=== PATIENT | female | born 1950 | race Caucasian/White ===

== ENCOUNTER 2019-08-25 16:04 | Observation (INO) ==
[2019-08-25] MEDS ORDERED: DEXTROSE 10% 250 ML BAG IV PRN (17:39)
[2019-08-25] MEDS ORDERED: GLUCAGON 1 MG VIAL IM PRN ×2 (17:39)
[2019-08-25] MEDS ORDERED: DEXTROSE 50% 25 GM/50 ML VIAL IV PRN (17:39)
[2019-08-25] MEDS ORDERED: ACETAMINOPHEN 325 MG TABLET PO PRN (18:53)
[2019-08-25] MEDS ORDERED: ONDANSETRON 4 MG/2 ML VIAL IV PRN (18:53)
[2019-08-25] MEDS: INSULIN LISPRO 100 UNIT/ML SUBCUT SCH (21:16)
[2019-08-25] MEDS ORDERED: KETOROLAC 10 MG TABLET PO PRN (21:33)
[2019-08-25] MEDS ORDERED: Loteprednol Etabonate [Lotemax] BOTH EYES SCH (21:45)
[2019-08-25 22:37] LABS: Troponin I < 0.015 NG/ML (0.00-0.045)
[2019-08-25] MEDS: cycloSPORINE OPH EMUL 1 VIAL BOTH EYES SCH (22:50)
[2019-08-25] MEDS: FLUTICASONE 50 MCG NASAL SPRAY 16 GM BOTTLE BOTH NARES SCH (22:50)
[2019-08-25] MEDS: CARBOXYMETHYLCELLULOSE 1% OPH SOLN BOTH EYES SCH (22:51)
[2019-08-25] MEDS: OLMESARTAN 20 MG TABLET PO SCH (22:52)
[2019-08-25] MEDS: carvediloL 12.5 MG TABLET PO SCH (22:52)
[2019-08-25] MEDS: GABAPENTIN 400 MG CAPSULE PO SCH (22:52)
[2019-08-25] MEDS: amLODIPine 5 MG TABLET PO SCH (22:52)
[2019-08-25] MEDS: NITROFURANTOIN MACRO/MONO 100 MG CAPSULE PO SCH (22:52)
[2019-08-26 01:04] LABS: Troponin I < 0.015 NG/ML (0.00-0.045)
[2019-08-26 05:10] LABS: Basophils # 0.1 10*3/uL (0.0-0.2); Basophils % 0.8 % (0.0-0.8); Eosinophils # 0.3 10*3/uL (0.0-0.87); Eosinophils % 4.2 % (0.00-10.9); Hematocrit 33.4 VOL% (35.7-47.0); Immature Granulocytes % 1.6 %; Immature Granulocytes Absolute 0.12 #; Lymphocytes % 26.6 % (21.3-54.2); Mean Corpuscular HGB Conc 32.9 GM/DL (32-36); Mean Corpuscular Volume 94.6 FL (87-102); Mean Platelet Volume 10.6 FL (9.6-12.0); Monocytes % 9.9 % (1.7-12.7); Neutrophils % 56.9 % (38.7-73.9); Platelet Count 224 T/CUMM (130-400); Red Blood Count 3.53 MC/CUMM (3.8-5.5); Red Cell Distribution Width 13.4 % (9.3-17.3); White Blood Count 7.6 T/CUMM (4-12)
[2019-08-26 05:27] LABS: Calcium 9.2 MG/DL (8.5-10.1); Osmolality,Calculated 279.1 MOS/KG (273-304)
[2019-08-26 08:38] VITALS: BP 118/55
[2019-08-26] MEDS ORDERED: MULTIVITAMIN (CENTRUM) TABLET PO SCH (09:00)
[2019-08-26] MEDS ORDERED: SPIRONOLACTONE 25 MG TABLET PO SCH (09:00)
[2019-08-26] MEDS ORDERED: SKIN PO SCH (09:00)
[2019-08-26] MEDS ORDERED: BIFIDOBACTERIUM INFANTIS PO SCH (09:00)
[2019-08-26] MEDS ORDERED: AZELASTINE NASAL 137 MCG/SPRAY 30 ML BOTTLE BOTH NARES SCH (09:00)
[2019-08-26] MEDS ORDERED: BIOTIN PO SCH (09:00)
[2019-08-26] MEDS ORDERED: ASPIRIN EC 81 MG TABLET PO SCH (09:00)
[2019-08-26] MEDS ORDERED: ASCORBIC ACID VITAMIN E BIOTIN PO SCH (09:00)
[2019-08-26] MEDS ORDERED: FATTY ACIDS PO SCH (09:00)
[2019-08-26] MEDS ORDERED: SIMVASTATIN 10 MG TABLET PO SCH (09:00)
[2019-08-26] MEDS ORDERED: CHOLECALCIFEROL 5,000 UNIT TABLET PO SCH (09:00)
[2019-08-26] MEDS ORDERED: OMEGA PO SCH (09:00)
[2019-08-26 09:24] LABS: Risk Ratio 5.91; VLDL CHOLESTEROL 77.4 MG/DL
[2019-08-26] MEDS: INSULIN LISPRO 100 UNIT/ML SUBCUT SCH (09:32)
[2019-08-26] MEDS: carvediloL 12.5 MG TABLET PO SCH (10:14)
[2019-08-26] MEDS: FLUTICASONE 50 MCG NASAL SPRAY 16 GM BOTTLE BOTH NARES SCH (10:16)
[2019-08-26] MEDS: OLMESARTAN 20 MG TABLET PO SCH (10:16)
[2019-08-26] MEDS: NITROFURANTOIN MACRO/MONO 100 MG CAPSULE PO SCH (10:17)
[2019-08-26] MEDS: CARBOXYMETHYLCELLULOSE 1% OPH SOLN BOTH EYES SCH (10:18)
[2019-08-26] MEDS: GABAPENTIN 400 MG CAPSULE PO SCH (10:18)
[2019-08-26] MEDS: cycloSPORINE OPH EMUL 1 VIAL BOTH EYES SCH (10:19)
[2019-08-26] MEDS: amLODIPine 5 MG TABLET PO SCH (10:19)
[2019-08-26] MEDS ORDERED: NITROGLYCERIN SL 0.4 MG TABLET SL PRN (10:28)
[2019-08-26] MEDS ORDERED: ACETAMINOPHEN 325 MG TABLET PO SCH (10:30)
== END 2019-08-26 12:25 | disposition home or self-care (01) ==
LOC: N.ED 16:04 → N.EDINP 16:04 → N.2W 20:22
PROVIDERS: ADMIT Internal Medicine; ATTEND Internal Medicine